=== PATIENT | male | born 2000 | race Hispanic/Latino ===

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

== ENCOUNTER 2018-05-27 10:45 | Observation (INO) | payer OTHER, SELFPAY ==
[2018-05-27] MEDS ORDERED: levETIRAcetam In NaCl (Iso-Os) 1,000 MG in Premix Bag 1 BAG IVPB ONE (11:15)
[2018-05-27] MEDS ORDERED: Ondansetron HCl/PF 4 MG/2 ML Vial ONE (11:16)
[2018-05-27 11:34] LABS: #Eosinphils 0.2 thou/uL (0.0-0.7); #Lymphocytes 1.9 thou/uL (1.20-3.40); #Monocytes 0.6 thou/uL (0.11-0.59); #Neutrophils 12.5 thou/uL (1.40-6.50); %Basophils 0.2 % (0.0-1.0); %Eosinophils 1.1 % (0.0-10.0); %Lymphocytes 12.8 % (28.0-48.0); Hemoglobin 16.5 g/dL (14.0-18.0); Mean Corpuscular Hemoglobin 33.4 pg (25.0-35.0); Mean Corpuscular Volume 92.5 fL (78.0-98.0); Platelet Count 226 thou/uL (130-400); RBC Distribution Width 11.7 % (11.5-14.5); Red Blood Cell (RBC) Count 4.95 mill/uL (4.00-5.20); White Blood Cell (WBC) Count 15.2 thou/uL (4.8-10.8)
[2018-05-27 11:59] LABS: ALT (SGPT) 32 U/L (8-55); AST (SGOT) 22 U/L (10-45); Albumin 5.1 g/dL (3.5-5.0); Alkaline Phosphatase 93 U/L (Less than 750); Anion Gap 13 mmol/L (10-20); BUN (Urea Nitrogen) 15 mg/dL (8.4-21.0); Bilirubin, Total 0.2 mg/dL (0.2-1.2); CK (CPK) 145 U/L (30-200); Calc. Creatinine Clearance 0 mL/min (70-130); Calcium 8.5 mg/dL (7.8-10.44); Carbon Dioxide 21 mmol/L (22-29); Chloride 109 mmol/L (98-107); Estimated GFR-MDRD Greater than 90; Globulin 3.1 g/dL (2.4-3.5); Glucose 147 mg/dL (70-105); Lipase 15 U/L (8-78); Protein, Total 8.2 g/dL (6.0-8.3); Sodium 139 mmol/L (136-145)
--- NOTE | 2018-05-27 12:55 | CT ---
CT OF THE BRAIN WITHOUT CONTRAST: Date: 05/27/18 COMPARISON: 10/31/17. HISTORY: Multiple seizures and vomiting. TECHNIQUE: Multiple contiguous axial images were obtained in a CT of the brain without contrast. FINDINGS: The brain is normal in morphology and attenuation without focal lesions or confluent areas of infarct ion. There is no evidence of hydrocephalus, intracranial hemorrhage, or extra-axial fluid collection. The calvarium and overlying soft tissues are unremarkable. The visualized paranasal sinuses and masto id air cells are well aerated. IMPRESSION: No evidence of acute intracranial abnormality. POS: [facility]
[2018-05-27] MEDS ORDERED: Lorazepam 2 MG/ML VIAL ONE (13:59)
[2018-05-27 15:42] LABS: Lactic Acid 5.6 mmol/L (0.5-2.2)
[2018-05-27] MEDS ORDERED: Bisacodyl 5 MG TAB PO PRN (15:59)
--- NOTE | 2018-05-27 16:22 | HP ---
CHIEF COMPLAINT: Seizure. PRIMARY CARE PROVIDER: Merlin Estrada M.D. HISTORY OF PRESENT ILLNESS: Mr. Scruggs is a pleasant 18-year-old gentleman who was seen at [facility] on 05/27/2018. He reports having a history of seizures for the last 2 years. He reports being compliant with his medications. Family reports that he has what they call minor seizures as well as what they call major seizures. Minor seizures are more frequent, last a couple of seconds and involve him curling his hands. Major seizures last about a minute to 2 minutes and are accompanied by tonic clonic activity. He reportedly has confusion following the seizures. He has not had a major seizure in a while. He has minor seizures several times a week. He had a tonic clonic seizure yesterday. He had 5 tonic clonic seizures today. He was therefore brought to the emergency room. Patient denies any chest pain or shortness of breath. In the emergency room, he had another seizure. He was referred to Hospitalist Service for admission. REVIEW OF SYSTEMS: All other systems reviewed and found to be negative. ALLERGIES: No known drug allergies. CURRENT MEDICATIONS: Levetiracetam 1250 mg 2 times a day and phenytoin 400 mg at bedtime. PAST MEDICAL HISTORY: Migraine headaches and seizures. PAST SURGICAL HISTORY: None. SOCIAL HISTORY: The patient reports marijuana use, denies alcohol use or tobacco use. FAMILY HISTORY: Significant for hypertension. PHYSICAL EXAMINATION: GENERAL: Mr. Scruggs is awake and alert, not in acute distress. VITAL SIGNS: Blood pressure is 136/69, pulse 102, respiratory rate 31, and oxygen saturation 100% on room air. He is afebrile. EYES: No scleral icterus. No conjunctival pallor. ENT: Moist mucosal membranes, no oropharyngeal erythema or exudates. NECK: Supple, nontender, trachea is midline. RESPIRATORY: Accessory muscles of breathing are not active. Chest wall movements are symmetric bilaterally. LUNGS: Clear to auscultation without wheeze, rhonchi or crepitations. CARDIOVASCULAR: S1 and S2 are heard, regular. Peripheral pulses palpable. No carotid bruit, no pericardial rub. ABDOMEN: Soft, nontender, bowel sounds are heard, no hepatomegaly, no splenomegaly. NEUROLOGIC: Cranial nerves II-XII intact. Deep tendon reflexes are 2+. MUSCULOSKELETAL: Power is 5/5 in all 4 extremities. SKIN: No rashes or subcutaneous nodules. LYMPHATIC: No cervical lymphadenopathy. PSYCHIATRIC: Normal mood, normal affect. The patient is oriented to person, place, and time. LABORATORY DATA: Mr. Scruggs' labs and investigations were reviewed. He had an electrocardiogram, which shows sinus bradycardia. He also had a noncontrast CT scan of the brain, which did not show any acute intracranial abnormality. He has leukocytosis with 15,200 white cells, of which 82% are neutrophils, normal hemoglobin, normal platelet count, normal sodium, normal potassium, decreased carbon dioxide of 21, elevated lactic acid of 5.6, unremarkable liver profile and normal prolactin level of 15.72. Phenytoin level is less than 1.8. ASSESSMENT AND PLAN: Mr. Scruggs is a pleasant 17-year-old gentleman who was seen at [facility] on 05/27/2018. His problem list includes: 1. Seizures: Mr. Scrugsg has breakthrough seizures. He reports compliance with his medications. His phenytoin level is undetectable. He has been loaded with phenytoin as well as Keppra and will continue phenytoin and Keppra. Neurology service will be consulted for opinion and help with management. 2. Leukocytosis: Etiology is unclear, likely secondary to seizure. Check chest x-ray. Pt does not have any urinary symptoms. 3. Lactic acidosis: Likely secondary to seizure. LEVEL OF RISK: Moderate. LEVEL OF COMPLEXITY: Moderate. MTDD
--- NOTE | 2018-05-27 16:23 | RAD ---
CHEST TWO VIEWS: History: Chest pain. Comparison: 02-06-12 FINDINGS: Cardiac silhouette and pulmonary vasculature are unremarkable. Mediastinum is midline. No confluent a irspace consolidation, pneumothorax, or pleural fluid. IMPRESSION: No active cardiopulmonary abnormalities are demonstrated. POS: [facility]
[2018-05-27] MEDS ORDERED: Acetaminophen 500 MG TAB ONE (16:27)
[2018-05-27] MEDS ORDERED: Ondansetron ODT 4 MG TAB SL PRN (17:24)
[2018-05-27] MEDS ORDERED: Lorazepam 2 MG/ML VIAL SLOW IVP PRN (17:24)
[2018-05-27] MEDS ORDERED: Acetaminophen 325 MG TAB PO PRN (17:24)
[2018-05-27] MEDS ORDERED: Ondansetron HCl/PF 4 MG/2 ML Vial IVP PRN (17:24)
[2018-05-27 19:22] VITALS: BMI 27.8
[2018-05-27] MEDS: levETIRAcetam 500 MG TAB PO SCH (20:43)
--- NOTE | 2018-05-27 23:42 | CON ---
DATE OF CONSULTATION: 05/27/2018 REFERRING PROVIDER: Dr. Naresh Ronquillo. REASON FOR CONSULTATION: Recurrent seizures. HISTORY OF PRESENT ILLNESS: Mr. Scruggs is a pleasant 17-year-old male, who has been consult ed for evaluation of recurrent seizures. The patient is known to me from his previous admission. He reports that he has been having episodes of seizures on a daily basis. He has "minor seizures" as w ell as "major seizures." He describes his minor seizures as having a passing out episode with shakin g of his arms, lasting less than 5 seconds followed by a complete resolution. He is also having sofie r seizures, in which he has whole-body convulsions, lasting for few minutes followed by postictal con fusion. He reports that yesterday he had one episode of a major seizure, and then this morning, he h ad 5 episodes of major seizures, which prompted his family to bring him to the [facility]. He is currently supposed to be on Dilantin 400 mg at bedtime and Keppra 1250 mg b.i.d., which h e says he has been taking it, although his Dilantin level was subtherapeutic at less than 1.8. PAST MEDICAL HISTORY: Significant for seizure disorder. PAST SURGICAL HISTORY: None significant. SOCIAL HISTORY: He reports of marijuana use. He denies alcohol, illicit drug use, or smoking use. FAMILY HISTORY: Significant for hypertension. CURRENT MEDICATIONS: Include Keppra 1250 mg twice daily and phenytoin 4 mg at bedtime. ALLERGIES: No known drug allergies. REVIEW OF SYSTEMS: As mentioned in the HPI, otherwise negative. PHYSICAL EXAMINATION: VITAL SIGNS: Blood pressure of 136/69, pulse of 102, respirations 31, O2 sats of 100% on room air. He is afebrile. GENERAL: A well-developed, well-nourished male, in no apparent distress. RESPIRATORY: Clear to auscultation bilaterally. CARDIOVASCULAR: Regular rate and rhythm. NEUROLOGICAL EXAM: Mental status: The patient is awake, alert, oriented x3. Speech and language: Fluent speech. Cranial nerves: Pupils are 3 mm and reactive. Visual swan are intact. External m uscles are intact. No nystagmus noted. Face is symmetric. Tongue and uvula midline. Motor exam sh owed normal tone and bulk with a 5/5 strength in both upper and lower extremities. Babinski: Planta r responses flexor bilaterally. Deep tendon reflexes 2+ reflexes in both upper and lower extremities . Sensory: Sensation is intact and symmetric. Gait and Romberg are not tested. LABORATORY DATA: Labs are reviewed, which included CBC, CMP, lactic acid, phenytoin level, which is significant for WBC of 15.2. Lactic acid of 5.6. Dilantin level of less than 1.8. IMAGING STUDIES: CT head without contrast was reviewed, which showed no acute intracranial abnormali ty. IMPRESSION: Recurrent seizures. ASSESSMENT AND PLAN: Mr. Scruggs is a pleasant 17-year-old male, who presents with recurrent seizures. 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 He is also most likely noncompliant with his medication, as his Dilantin level continues to be less hitesh n 1.8, even though the level has been increased in the past. At this time, I would recommend continu ing on Dilantin 400 mg at bedtime. I will increase Keppra to 1500 mg b.i.d. If he remains seizure f ree, he is okay to be discharged home tomorrow morning. If he continues to have episodes of seizures , then he may be benefited from having epilepsy monitoring unit where they can capture his spells. Collin kimble, there is no neurologist in [facility] that is currently performing an EMU and thus he may nee d to be referred to [facility] for further evaluation. Continue supportive care. Thank you for consultation.
[2018-05-28] MEDS: levETIRAcetam 500 MG TAB PO SCH (09:27)
[2018-05-28 12:20] VITALS: BP 137/80; TEMP 98.8
--- NOTE | 2018-05-28 13:02 | DIS ---
DATE OF ADMISSION: 05/27/2018 DATE OF DISCHARGE: 05/28/2018 PRIMARY CARE PHYSICIAN: Merlin Estrada M.D. DISCHARGE DIAGNOSIS: Seizure. CONDITION OF PATIENT ON THE DAY OF DISCHARGE: Stable. I assessed Mr. Scruggs on the day of discharge. He had no recurrence of seizures while in the hospita . He denies any chest pain or shortness of breath. He denies any fevers or chills. Vital signs ar e stable. S1 and S2 are heard, regular. Lungs are clear to auscultation bilaterally. CONSULTATIONS DURING THIS HOSPITALIZATION: Neurology, Dr. Myrna Harrison. HOSPITAL COURSE: Mr. Scruggs is a pleasant 17-year-old gentleman who was admitted to [facility] on 05/28/2018 for recurrent seizures. He was seen by Neurology Service. His Keppr a dose was increased to 1500 mg 2 times a day. He is advised to continue phenytoin 400 mg at bedtime . He did not have recurrence of seizures while in the hospital. He has been cleared by Neurology Servi ce for discharge. His Dilantin level was low during this hospitalization. Neurology Service feels that if he continues to have episodes of seizures, he may benefit from having epilepsy monitoring unit we can capture his spells. He may need to be referred to [facility] for further evaluation if he has recurrent sei zures. DISCHARGE MEDICATIONS: Phenytoin 400 mg at bedtime and Keppra 1500 mg 2 times a day. Many thanks for allowing me to participate in your patient's care. Please feel free to contact me wi th any questions or concerns. DISCHARGE DESTINATION: Home. TOTAL AMOUNT OF TIME SPENT COORDINATING THIS DISCHARGE: 33 minutes.
== END 2018-05-28 12:25 | disposition home or self-care (01) ==
LOC: ERS 10:45 → 2SE 14:34 → ERS 17:12
PROVIDERS: ADMIT Internal Medicine; ATTEND Internal Medicine
DX: G40.909 Epilepsy, unspecified, not intractable, without status epilepticus (principal); G43.909 Migraine, unspecified, not intractable, without status migrainosus; E87.2 Acidosis; D72.829 Elevated white blood cell count, unspecified; Z79.899 Other long term (current) drug therapy
CPT/HCPCS: 36415; 70450; 71046; 80053; 80185; 82550; 83605; 83690; 84146; 85025; 93005; 96361; 96365; 96367; 96375; G0378; J1953; J2060; J2405; J7050; Q2009

== ENCOUNTER 2018-10-11 20:26 | Emergency (ER) | payer OTHER, SELFPAY | END 2018-10-11 21:12 | disposition home or self-care (01) | LOC: ERS 20:26 | DX: L03.111 Cellulitis of right axilla (principal); L03.112 Cellulitis of left axilla; G43.909 Migraine, unspecified, not intractable, without status migrainosus; F17.210 Nicotine dependence, cigarettes, uncomplicated; Z79.899 Other long term (current) drug therapy | CPT/HCPCS: 99283 ==

== ENCOUNTER 2018-12-11 12:36 | Outpatient (CLI) | payer OTHER ==
--- NOTE | 2018-12-11 16:13 | MRI ---
MRI BRAIN WITH AND WITHOUT CONTRAST: 12/11/2018 HISTORY: A 18-year-old male with G40.206, complex partial seizures. TECHNIQUE: Multiple sequences obtained in axial, sagittal, and coronal planes; pre and post IV injection of gado linium-based contrast agent: MultiHance 15 mL. In addition to standard sequences, additional multiple thin slice coronal sequences were obtained. FINDINGS: The ventricles are normal in size and configuration. There is no major intraaxial signal abnormality , restricted diffusion, abnormal intraaxial enhancement, mass, midline shift or any other mass effect , recent intraaxial hemorrhage, or extraaxial fluid collection. The mesial temporal lobe structures, more specifically the hippocampi, are bilaterally symmetrical in size and signal. Incidentally, ther e is mucosal thickening with increased enhancement in the superior portion of the nasal cavity bilate rally. IMPRESSION: The brain is normal. jn[] POS: JACK
== END 2018-12-11 12:37 | disposition home or self-care (01) ==
LOC: SCSMRI 12:36
PROVIDERS: ATTEND Nurse Practitioner Acute Care
DX: G40.209 Localization-related (focal) (partial) symptomatic epilepsy and epileptic syndromes with complex partial seizures, not intractable, without status epilepticus (principal)
CPT/HCPCS: 70553

== ENCOUNTER 2018-12-19 10:33 | Observation (INO) | payer OTHER ==
[~2018-12-19 10:33] MED LIST: Iopamidol 370 76% 100 ML VIAL ONE
[2018-12-19 11:05] LABS: #Eosinphils 0.2 thou/uL (0.0-0.7); #Lymphocytes 2.3 thou/uL (1.20-3.40); #Monocytes 1.1 thou/uL (0.11-0.59); #Neutrophils 9.5 thou/uL (1.40-6.50); %Basophils 0.2 % (0.0-1.0); %Eosinophils 1.2 % (0.0-10.0); %Lymphocytes 17.3 % (28.0-48.0); %Monocytes 8.6 % (0.0-4.0); %Neutrophils 72.6 % (31.0-61.0); Hemoglobin 14.6 g/dL (14.0-18.0); Mean Corpuscular Hemoglobin 31.3 pg (25.0-35.0); Mean Corpuscular Volume 92.1 fL (78.0-98.0); Mean Platelet Volume 7.7 fL (7.4-10.4); Platelet Count 255 thou/uL (130-400); Red Blood Cell (RBC) Count 4.68 mill/uL (4.00-5.20); White Blood Cell (WBC) Count 13.1 thou/uL (4.8-10.8)
[2018-12-19] MEDS ORDERED: Famotidine/PF 20 mg/2ml Vial ONE (11:11)
[2018-12-19 11:28] LABS: ALT (SGPT) 34 U/L (8-55); AST (SGOT) 16 U/L (5-34); Albumin 4.5 g/dL (3.5-5.0); Alkaline Phosphatase 99 U/L (Less than 750); Anion Gap 10 mmol/L (10-20); BUN (Urea Nitrogen) 9 mg/dL (8.9-20.6); Bilirubin, Total 0.6 mg/dL (0.2-1.2); Calc. Creatinine Clearance 0 mL/min (70-130); Calcium 9.5 mg/dL (7.8-10.44); Carbon Dioxide 30 mmol/L (22-29); Chloride 102 mmol/L (98-107); Estimated GFR-MDRD Greater than 90; Glucose 107 mg/dL (70-105); Lipase 8 U/L (8-78); Potassium 3.6 mmol/L (3.5-5.1); Protein, Total 7.5 g/dL (6.0-8.3); Sodium 138 mmol/L (136-145)
[2018-12-19 11:47] LABS: Bilirubin Negative (Negative); Blood, Urine Trace (Negative); Glucose, Urine (Dipstick) Negative (Negative); Leukocyte Negative (Negative); Nitrite Negative (Negative); Protein, Urine (Dipstick) Negative (Neg-Trace); Specific Gravity, Urine 1.015 (1.005-1.030); Urobilinogen 0.2 mg/dL (0.2-1.0)
[2018-12-19 11:48] LABS: Clarity CLEAR (Clear)
[2018-12-19 11:52] LABS: RBC/HPF None Seen HPF (0-3); WBC/HPF None Seen HPF (0-3)
[2018-12-19 11:53] LABS: Bacteria/HPF None Seen HPF (None Seen); Hyaline Casts/LPF NONE SEEN LPF (0-3 Hyaline); Squamous Epithelial 0-3 HPF (0-3)
[2018-12-19] MEDS ORDERED: Mag-Al 1200 mg/1200 mg/30 ML UDCUP ONE (12:54)
[2018-12-19] MEDS ORDERED: Lidocaine Viscous Sol 2% 15 ml UD Cup ONE (12:54)
--- NOTE | 2018-12-19 12:59 | CT ---
CT ABDOMEN AND PELVIS WITH IV CONTRAST: Date: 12-19-18 Provided Clinical History: Abdominal pain. FINDINGS: Comparison is made with the study dated 07-22-14. The visualized lung bases are free of significant opacity. The liver, spleen, pancreas, kidneys and adrenal glands demonstrate an unremarkable CT appearance. Appendix appears mildly prominent in caliber and demonstrates mural thickening and no apparent event marketing intern al gas. There is minimal suspected periappendiceal fat stranding changes. There is no bowel dilatatio n, additional inflammatory fat stranding, free fluid or free air apparent. The osseous structures demonstrate no concerning osteoblastic or osteolytic lesions. IMPRESSION: Findings suspicious for early acute appendicitis. POS: TPC
[2018-12-19] MEDS ORDERED: Piperacillin/Tazobactam 4.5 GM VIAL ONE (14:04)
[2018-12-19] MEDS ORDERED: Morphine 4 MG/ML VIAL ONE (14:04)
[2018-12-19] MEDS ORDERED: Bupivacaine/Epinephrine 0.25% 30 ML VIAL ONE (14:41)
--- NOTE | 2018-12-19 14:42 | HP ---
HISTORY OF PRESENT ILLNESS: Mr. Scruggs is a 18-year-old young man with history of epileptic seizures. The patient was brought to the emergency department by his father and power of title attorney, reporting insidious onset periumbilical abdominal pain which started approximately 0400 hours. The pain is associated with multiple episodes of nausea and emesis. The pain is soon settled in the right lower quadrant, where it has persisted. The patient rates his pain at 7/10 after intravenous analgesics. He denies any fevers or chills. He denies any change in his bowel habits. PAST MEDICAL HISTORY: Significant for epileptic seizure disorder, of which the patient thought he might have seized this morning. PAST SURGICAL HISTORY: He denies any previous surgeries. SOCIAL HISTORY: He is unemployed. Lives at home with his father. He denies any cigarette smoking, ethanol, or illicit drug abuse. FAMILY HISTORY: Notable for paternal grandfather, who from complications of diabetes mellitus. His grandmother has essential hypertension and heart disease. His father has type 2 diabetes mellitus. There is no family history of cancer. PRE-HOSPITAL MEDICATIONS: Includes Keppra 500 mg p.o. b.i.d. ALLERGIES: THE PATIENT DENIES ANY KNOWN DRUG ALLERGIES. REVIEW OF SYSTEMS: Ten-point review of systems essentially unremarkable except as stated in past medical history and chief complaint. PHYSICAL EXAMINATION: GENERAL: This reveals a 18-year-old normally developed young man, who is otherwise coherent, interactive, and appears stated age. The patient is alert and oriented x3, appears to be in no acute distress at time of my evaluation. VITAL SIGNS: Blood pressure 119/78, pulse 86, respiratory rate is 18, temperature 98 degrees Fahrenheit, oxygen saturation 99% on room air. HEENT: Reveals normocephalic and atraumatic. Pupils are equal, round, reactive to light and accommodation. Extraocular muscles are intact bilaterally. No scleral icterus present. Oral mucosa is pink and moist. No lesions are noted. NECK: Supple. No palpable lymphadenopathy or thyromegaly present. HEART: Reveals regular rate and rhythm. No murmurs or gallops auscultated. LUNGS: Clear to auscultation bilaterally. Breathing, regular and nonlabored. ABDOMEN: Soft and nondistended. He has right lower quadrant tenderness at McBurney's. He has positive Rovsing sign. Liver and spleen otherwise nonpalpable below costal margin. EXTREMITIES: 2+ radial and pedal pulses bilaterally. No ankle edema is present. NEUROLOGICAL: Reveals no focal deficits present. LABORATORY DATA: Laboratory findings today includes CBC with 13,100 white blood cells, hemoglobin and hematocrit are 14.6 and 43.1 respectively. Platelet count is 255,000. Metabolic profile; sodium 138, potassium is 3.6, chloride is 102, bicarb is 30, BUN 9, creatinine 0.72, glucose 107, total bilirubin 0.6, AST and ALT are 16 and 34 respectively. Serum lipase is normal at 8. I have also personally reviewed the CT scan of the abdomen and pelvis, which is remarkable for dilated appendix with periappendiceal fat stranding. No pneumoperitoneum or free fluid is noted. IMPRESSIONS: 1. Acute appendicitis with localized peritonitis. 2. History of epileptic seizure disorder. PLAN: Laparoscopic appendectomy. Above findings and plan has been discussed with the patient and his father at bedside. I have informed the patient of the risks and benefits of the proposed surgery to include, but not limited to bleeding, infection, injury to bowel or surrounding structures. The patient indicates understanding of information I provided. Answered their questions. The patient and his father have both granted consent for this admission and surgical intervention. Job ID: [id number]
[2018-12-19] MEDS ORDERED: Fentanyl 100 MCG/2 ML VIAL ONE ×2 (14:55→16:59)
[2018-12-19] MEDS ORDERED: Rocuronium Bromide 10 MG/ML (10ML VIAL) ONE (15:12)
[2018-12-19] MEDS ORDERED: Glycopyrrolate 0.2 MG/ML 5 ML SYRINGE ONE (15:12)
[2018-12-19] MEDS ORDERED: PROPOFOL 200 MG/20 ML VIAL ONE (15:12)
[2018-12-19] MEDS ORDERED: Lidocaine 1% PF 5 ML VIAL ONE (15:12)
[2018-12-19] MEDS ORDERED: Ketorolac Tromethamine 30 MG/ML VIAL ONE (15:12)
[2018-12-19] MEDS ORDERED: Dextrose 5% in Water 1,000 ML IV PRN (16:17)
[2018-12-19] MEDS ORDERED: Ondansetron PF 4 MG/2 ML Vial IVP PRN (16:17)
[2018-12-19] MEDS ORDERED: Promethazine HCl 25 MG/ML VIAL IM PRN ×2 (16:17→16:23)
[2018-12-19] MEDS ORDERED: Dextrose 50% Abboject 50 ML SYRINGE SLOW IVP PRN (16:17)
[2018-12-19] MEDS ORDERED: Acetaminophen/Codeine 30-300mg Tablet PO PRN ×2 (16:20)
[2018-12-19] MEDS ORDERED: Morphine Sulfate 2 MG/ML SYRINGE SLOW IVP PRN (16:23)
[2018-12-19] MEDS ORDERED: Meperidine HCl/PF 25 MG/ML VIAL SLOW IVP PRN (16:23)
[2018-12-19] MEDS ORDERED: Promethazine HCl 25 MG/ML VIAL SLOW IVP PRN (16:23)
[2018-12-19] MEDS ORDERED: Ondansetron HCl/PF 4 MG/2 ML Vial IVP PRN (16:23)
--- NOTE | 2018-12-19 17:14 | OP ---
DATE OF PROCEDURE: 12/19/2018 PREOPERATIVE DIAGNOSIS: Acute appendicitis. POSTOPERATIVE DIAGNOSIS: Acute appendicitis. OPERATION PERFORMED: Laparoscopic appendectomy. ANESTHESIA: General endotracheal. ESTIMATED BLOOD LOSS: 5 mL. FLUIDS GIVEN: 500 mL crystalloids. COUNTS: Sponge and instrument counts were verified as correct x2. COMPLICATION: None apparent operation at the time of operation. INDICATIONS FOR OPERATION: This is a 18-year-old man presenting with abdominal pain. Clinical radiographic examination was consistent with acute appendicitis for which the patient was brought to operating room for appendectomy. Findings are consistent with suppurative, but nonperforated retrocecal appendix. DESCRIPTION OF PROCEDURE: Informed consent was obtained from the patient. He was brought to the operating room and placed in supine position. Following general anesthesia, abdomen was sterilely prepped and draped in usual fashion. The skin below the umbilicus was infiltrated 0.25% Marcaine with epinephrine. A small curvilinear infraumbilical incision was made using 11 scalpel. Umbilical stalk was grasped with Autumn and elevated. Veress needle was inserted through the incision and placed in the peritoneal cavity through which the abdomen was insufflated with 3 L of CO2 gas. Intraabdominal pressure noted at 1 mmHg. Following abdominal insufflation, Veress needle was removed and replaced with a 5 mm trocar, introduced using a Visiport under laparoscopy. Laparoscopy confirmed proper placement of the port. No injuries to underlying structures. Additional laparoscopy revealed right lower quadrant obscured by omental adhesions. Under direct laparoscopy, a 5 mm trocars were placed in the suprapubic and left lower quadrant areas after the overlying skin were infiltrated with 0.25% Marcaine with epinephrine. Appropriate incision was made. These were placed on the laparoscopy. The patient was then placed in a Trendelenburg position, rotated to his left. I introduced Prestige grasper through the left lower quadrant port site using this to bluntly take down omental adhesions to expose the terminal ileum. The terminal ileum ran from the ileocecal junction to proximal 2 feet. No Meckel diverticulum noted. A retrocecal dilated appendix was then identified, grasped with an Endo Sangeeta forceps, which was introduced through the suprapubic port site, which was then elevated. I used LigaSure device to sterilely take down the mesoappendix down to the base with good hemostasis. The appendix itself was divided at the appendiceal cecal junction between endo-loops. The appendix was delivered of the abdominal cavity using an EndoCatch. Operative site was inspected for good hemostasis. Finding no other pathology, laparoscopy was terminated. The abdomen was desufflated. All ports and instruments were removed and accounted for. Skin incisions were closed using 4-0 Monocryl suture in subcuticular fashion. Dermabond was applied over incisional closure. The patient tolerated the operation without any apparent complication and was returned to recovery room in satisfactory condition. Job ID: [id number]
[2018-12-19] MEDS: Acetaminophen 325 MG TAB PO SCH (18:51)
[2018-12-19] MEDS: Lactated Ringer's 1,000 ML IV SCH (18:55)
[2018-12-19] MEDS: Ketorolac Tromethamine 30 MG/ML VIAL IVP SCH (18:55)
[2018-12-19] MEDS: levETIRAcetam 500 MG TAB PO SCH (20:31)
[2018-12-19] MEDS: Famotidine 20 MG TAB PO SCH (20:31)
[2018-12-19] MEDS: Famotidine/PF 20 mg/2ml Vial SLOW IVP SCH (20:32)
[2018-12-19] MEDS: Piperacillin/Tazobactam 3.375 GM in Sodium Chloride 0.9% 100 ML IVPB SCH (21:13)
[2018-12-19 22:20] VITALS: BMI 25.7
[2018-12-20] MEDS: Ketorolac Tromethamine 30 MG/ML VIAL IVP SCH ×2 (00:01→06:19)
[2018-12-20] MEDS: Piperacillin/Tazobactam 3.375 GM in Sodium Chloride 0.9% 100 ML IVPB SCH ×2 (02:29→09:41)
[2018-12-20] MEDS: Lactated Ringer's 1,000 ML IV SCH (02:35)
[2018-12-20] MEDS: Acetaminophen 325 MG TAB PO SCH ×2 (06:18)
[2018-12-20] MEDS ORDERED: Ibuprofen 600 MG TAB PO PRN (07:38)
[2018-12-20] MEDS: Famotidine 20 MG TAB PO SCH (08:15)
[2018-12-20] MEDS: levETIRAcetam 500 MG TAB PO SCH (08:15)
[2018-12-20] MEDS: Famotidine/PF 20 mg/2ml Vial SLOW IVP SCH (08:16)
[2018-12-20 08:22] VITALS: BP 128/71; TEMP 97.6
--- NOTE | 2018-12-20 10:45 | DIS ---
DATE OF ADMISSION: 12/19/2018 DATE OF DISCHARGE: 12/20/2018 ADMITTING DIAGNOSIS: Acute appendicitis. DISCHARGE DIAGNOSIS: Acute appendicitis. OPERATIONS AND PROCEDURES: Laparoscopic appendectomy on 12/19/[address] Freeman. Please see separate dictation for operative report. HISTORY AND HOSPITAL COURSE: A 18-year-old man was admitted yesterday following a diagnosis of acute abdominal pain secondary to acute appendicitis. The patient underwent an uneventful laparoscopic appendectomy following which he was admitted to general floor until time of discharge. His hospitalization has been essentially uneventful. Postop day #1, he is ambulating with minimal difficulty. His pain is adequately controlled on oral analgesics. He is having normal bowel and urinary function. He has remained hemodynamically stable and afebrile. He has had no seizure activities. Clinical examination reveals young man in no acute distress. PHYSICAL EXAMINATION: VITAL SIGNS: This morning includes blood pressure 101/59, pulse 70, respiratory rate 16, temperature 97.5 degrees Fahrenheit, oxygen saturation 98% on room air. ABDOMEN: Abdominal incisions are intact, clean and dry. He has no peritoneal signs on examination. DISCHARGE INSTRUCTIONS: The patient will be discharged home today with the following instructions. 1. He is to avoid weight lifting in excess of 20 pounds until he has been released by me. He follows up with me in the Surgery Clinic in 10 days. 2. He is to take Tylenol 650 mg p.o. q.6 hours or ibuprofen 600 mg p.o. q.6 hours p.r.n. pain. Additionally, he was given a prescription for Tylenol No. 3 to be taken one p.o. q.6 hours p.r.n. breakthrough pain. 3. He was given 20 tablets, no refill. 4. He is to resume all pre-hospital medications as prescribed by his primary care physician including Keppra and Dilantin. 5. With regard to his history of epileptic seizure disorder, he is to follow up with his primary care physician. 6. The patient is to call me with any questions or problems including exacerbation of abdominal pain, fever in excess of 101 degrees Fahrenheit, intolerance to oral intake or any abnormal drainage from the incisional wounds. This information was given to the patient, who indicates understanding of information given. 7. I have answered his questions. Job ID: [id number]
== END 2018-12-20 11:52 | disposition home or self-care (01) ==
LOC: ERS 10:33 → SDC 14:35 → ONC 17:41 → INTOOBSV 17:41
PROVIDERS: ADMIT Surgery; ATTEND Surgery
PROC: 0DTJ4ZZ Resection of Appendix, Percutaneous Endoscopic Approach (ICD-10-PCS; principal; 2018-12-19)
DX: K35.80 Unspecified acute appendicitis (principal); G40.909 Epilepsy, unspecified, not intractable, without status epilepticus; Z79.899 Other long term (current) drug therapy
CPT/HCPCS: 36415; 74177; 80053; 80185; 81003; 81015; 83690; 85025; 88304; 96361; 96365; 96366; 96374; 96375; 96376; G0378; J1885; J2001; J2270; J2543; J2704; J3010; J7050; Q9967; S0028

== ENCOUNTER 2018-12-25 15:14 | Emergency (ER) | payer OTHER ==
[2018-12-25 16:09] LABS: #Eosinphils 0.4 thou/uL (0.0-0.7); #Lymphocytes 2.1 thou/uL (1.20-3.40); #Monocytes 0.7 thou/uL (0.11-0.59); #Neutrophils 7.3 thou/uL (1.40-6.50); %Eosinophils 4.1 % (0.0-10.0); %Lymphocytes 20.2 % (28.0-48.0); %Monocytes 6.4 % (0.0-4.0); %Neutrophils 69.3 % (31.0-61.0); Hemoglobin 15.4 g/dL (14.0-18.0); Mean Corpuscular HGB CONC 33.9 g/dL (32.0-36.0); Mean Corpuscular Hemoglobin 31.1 pg (25.0-35.0); Mean Corpuscular Volume 91.8 fL (78.0-98.0); Platelet Count 246 thou/uL (130-400); RBC Distribution Width 12.1 % (11.5-14.5); Red Blood Cell (RBC) Count 4.93 mill/uL (4.00-5.20); White Blood Cell (WBC) Count 10.5 thou/uL (4.8-10.8)
[2018-12-25 16:26] LABS: Bilirubin Negative (Negative); Blood, Urine Small (Negative); Clarity CLEAR (Clear); Glucose, Urine (Dipstick) Negative (Negative); Leukocyte Negative (Negative); Nitrite Negative (Negative); Protein, Urine (Dipstick) Trace mg/dL (Neg-Trace); Specific Gravity, Urine 1.036 (1.002-1.036); Urobilinogen 0.2 mg/dL (0.2-1.0); pH, Urine 5.5 (5.0-9.0)
[2018-12-25 16:28] LABS: Bacteria/HPF None Seen HPF (None Seen); Pathc Cast-AUWi Flag 2.31 (0-2.49); RBC/HPF 0-3 HPF (0-3); Squamous Epithelial 0-3 HPF (0-3)
[2018-12-25 16:34] LABS: Hyaline Casts/LPF 0-3 HYALINE CAST LPF (0-3 Hyaline)
[2018-12-25 16:36] LABS: ALT (SGPT) 81 U/L (8-55); AST (SGOT) 36 U/L (5-34); Acetaminophen Less than 6.0 mcg/mL (10.0-30.0); Albumin 4.8 g/dL (3.5-5.0); Alcohol Less than 10 mg/dL (Less than 10); Alkaline Phosphatase 113 U/L (Less than 750); Anion Gap 11 mmol/L (10-20); BUN (Urea Nitrogen) 13 mg/dL (8.9-20.6); Bilirubin, Total 0.3 mg/dL (0.2-1.2); Calc. Creatinine Clearance 0 mL/min (70-130); Calcium 9.9 mg/dL (7.8-10.44); Carbon Dioxide 29 mmol/L (22-29); Chloride 102 mmol/L (98-107); Estimated GFR-MDRD Greater than 90; Globulin 3.5 g/dL (2.4-3.5); Glucose 91 mg/dL (70-105); Potassium 3.8 mmol/L (3.5-5.1); Protein, Total 8.3 g/dL (6.0-8.3); Salicylate Less than 8.0 mg/dL (15.0-30.0); Sodium 138 mmol/L (136-145)
[2018-12-25 16:37] LABS: Amphetamine Not Detected (NotDetected); Barbiturates Screen Detected (NotDetected); Benzodiazepine Screen Not Detected (NotDetected); Cocaine Metabolite Screen Not Detected (NotDetected); Medtox Control Line Valid? VALID (VALID); Medtox Reader # READER 1; Methadone Not Detected (NotDetected); Methamphetamine Not Detected (NotDetected); Opiate Screen Detected (NotDetected); Oxycodone Screen Not Detected (NotDetected); Phencyclidine (PCP) Not Detected (NotDetected); THC/Cannabinoid Screen Detected (NotDetected); Tricyclic Screen Not Detected (NotDetected)
--- NOTE | 2018-12-25 20:02 | CT ---
CT OF THE BRAIN WITHOUT CONTRAST: 12/25/18 INDICATION: History of altered mental status with possible reaction to Dilantin. COMPARISON: Prior exam dated 06/26/18. FINDINGS: No acute infarct, hemorrhage, or hydrocephalus is present. Septum pellucidum and third ventricle are midline. Skull and extracranial soft tissues are unremarkable appearing. IMPRESSION: No acute intracranial abnormality. POS: BH
== END 2018-12-25 21:15 | disposition home or self-care (01) ==
LOC: ERS 15:14
DX: G40.909 Epilepsy, unspecified, not intractable, without status epilepticus (principal); G43.909 Migraine, unspecified, not intractable, without status migrainosus; F41.9 Anxiety disorder, unspecified; F31.9 Bipolar disorder, unspecified; F20.9 Schizophrenia, unspecified; Z79.899 Other long term (current) drug therapy
CPT/HCPCS: 36415; 70450; 80053; 80177; 80185; 80306; 80307; 81003; 81015; 84443; 85025

== ENCOUNTER 2019-04-06 14:12 | Emergency (ER) | payer OTHER ==
[~2019-04-06 14:12] MED LIST changes: +ISOVUE-370 76%-LOCM 1 ML ONE; -Iopamidol 370 76% 100 ML VIAL ONE
[2019-04-06 14:45] LABS: #Eosinphils 0.1 thou/uL (0.0-0.7); #Lymphocytes 3.2 thou/uL (1.20-3.40); #Monocytes 1.3 thou/uL (0.11-0.59); #Neutrophils 10.1 thou/uL (1.40-6.50); %Basophils 0.1 % (0.0-1.0); %Eosinophils 0.9 % (0.0-10.0); %Lymphocytes 21.6 % (28.0-48.0); %Monocytes 8.7 % (0.0-4.0); %Neutrophils 68.7 % (31.0-61.0); Mean Corpuscular Hemoglobin 31.8 pg (25.0-35.0); Mean Corpuscular Volume 91.1 fL (78.0-98.0); Mean Platelet Volume 7.7 fL (7.4-10.4); Platelet Count 234 thou/uL (130-400); RBC Distribution Width 12.1 % (11.5-14.5); White Blood Cell (WBC) Count 14.7 thou/uL (4.8-10.8)
[2019-04-06 15:05] LABS: ALT (SGPT) 21 U/L (8-55); AST (SGOT) 12 U/L (5-34); Albumin 4.6 g/dL (3.5-5.0); Alkaline Phosphatase 72 U/L (Less than 750); Anion Gap 12 mmol/L (10-20); BUN (Urea Nitrogen) 10 mg/dL (8.9-20.6); Bilirubin, Total 0.9 mg/dL (0.2-1.2); Calc. Creatinine Clearance 0 mL/min (70-130); Calcium 9.1 mg/dL (7.8-10.44); Carbon Dioxide 28 mmol/L (22-29); Chloride 102 mmol/L (98-107); Estimated GFR-MDRD Greater than 90; Globulin 3.1 g/dL (2.4-3.5); Glucose 84 mg/dL (70-105); Potassium 3.6 mmol/L (3.5-5.1); Protein, Total 7.7 g/dL (6.0-8.3); Sodium 138 mmol/L (136-145)
[2019-04-06 15:39] LABS: Bilirubin Negative (Negative); Blood, Urine Negative (Negative); Clarity CLEAR (Clear); Glucose, Urine (Dipstick) Negative (Negative); Leukocyte Negative (Negative); Nitrite Negative (Negative); Protein, Urine (Dipstick) Negative (Neg-Trace); Urobilinogen 0.2 mg/dL (0.2-1.0)
--- NOTE | 2019-04-06 17:29 | CT ---
EXAM: CT ABDOMEN AND PELVIS HISTORY: Right-sided abdominal pain, starting last night. Previous appendectomy. COMPARISON: 12/19/2018 Procedure: Multiple contiguous axial images were obtained and a CT of the abdomen and pelvis with IV contrast. C oronal reformats were performed. FINDINGS: Lower Chest: Minimal atelectatic changes in the lung bases Vessels: Normal caliber aorta. Heart: Normal size. No pericardial fluid. Abdomen: Portal vein:Patent Gallbladder: No calcified gallstones. Normal caliber wall. Liver: within normal limits. Pancreas: within normal limits. Spleen: within normal limits. Adrenals: within normal limits. Kidneys: Symmetric enhancement. No obstructive uropathy. Peritoneum: No ascites or free air, no fluid collection. Bowel: Limited evaluation due to lack of oral contrast. No evidence of small bowel obstruction. Ileoc ecal junction is normal. Unremarkable colon. Occasional diverticulum. No diverticulitis. Mesentery and Retroperitoneum: When compared to the previous examination, there are few scattered sli ghtly enlarged mesenteric lymph nodes. Associate Product Manager enlarged lymph node is noted in the right lower quadrant measuring 0.8 x 0.6 cm. Correlate for mesenteric lymphadenitis. Abdominal Wall: within normal limits. Pelvis: Reproductive Organs: Unremarkable prostate gland Pelvis: within normal limits. Bladder: within normal limits. Bones: within normal limits. IMPRESSION: 1. Enlarged mesenteric lymph nodes. Correlate for mesenteric lymphadenitis. 2. No evidence of abscess within the abdomen or pelvis. 3. No evidence of bowel obstruction.
[2019-04-06] MEDS ORDERED: Ondansetron PF 4 MG/2 ML Vial ONE (17:38)
[2019-04-06] MEDS ORDERED: Dicyclomine 20 MG TAB ONE (17:38)
== END 2019-04-06 18:38 | disposition home or self-care (01) ==
LOC: ERS 14:12
DX: I88.0 Nonspecific mesenteric lymphadenitis (principal); D72.829 Elevated white blood cell count, unspecified; G43.909 Migraine, unspecified, not intractable, without status migrainosus; F41.9 Anxiety disorder, unspecified; F31.9 Bipolar disorder, unspecified; F20.9 Schizophrenia, unspecified
CPT/HCPCS: 74177; 80053; 81003; 85025; 96361; 96374; J2405; Q9966

== ENCOUNTER 2019-08-12 10:10 | Emergency (ER) | payer OTHER | END 2019-08-12 11:48 | disposition home or self-care (01) | LOC: ERS 10:10 | DX: H61.22 Impacted cerumen, left ear (principal); G43.909 Migraine, unspecified, not intractable, without status migrainosus; F41.9 Anxiety disorder, unspecified; F31.9 Bipolar disorder, unspecified; F20.9 Schizophrenia, unspecified | CPT/HCPCS: 99281 ==

== ENCOUNTER 2019-11-16 16:44 | Emergency (ER) | payer OTHER, MEDICAID | END 2019-11-16 17:09 | disposition home or self-care (01) | LOC: ERS 16:44 | DX: Z76.0 Encounter for issue of repeat prescription (principal); R56.9 Unspecified convulsions; G43.909 Migraine, unspecified, not intractable, without status migrainosus; F41.9 Anxiety disorder, unspecified; F31.9 Bipolar disorder, unspecified; F20.9 Schizophrenia, unspecified | CPT/HCPCS: 99281 ==

== ENCOUNTER 2020-12-06 13:05 | Emergency (ER) | payer OTHER, MEDICAID ==
[2020-12-06] MEDS ORDERED: Iopamidol-370 76% 500 ML 1 ML ONE (13:35)
[2020-12-06 13:53] LABS: #Basophils 0.1 thou/uL (0.0-0.2); #Eosinphils 0.1 thou/uL (0.0-0.7); #Lymphocytes 2.1 thou/uL (1.20-3.40); #Neutrophils 9.7 thou/uL (1.40-6.50); %Basophils 0.4 % (0.0-1.0); %Eosinophils 0.6 % (0.0-10.0); %Lymphocytes 16.6 % (21.0-51.0); %Monocytes 7.4 % (0.0-10.0); Hemoglobin 15.5 g/dL (14.0-18.0); Mean Corpuscular HGB CONC 34.5 g/dL (32.0-36.0); Mean Corpuscular Hemoglobin 32.1 pg (27.0-31.0); Mean Corpuscular Volume 93.2 fL (78.0-98.0); Mean Platelet Volume 8.6 fL (7.4-10.4); Platelet Count 224 thou/uL (130-400); RBC Distribution Width 11.7 % (11.5-14.5); Red Blood Cell (RBC) Count 4.84 mill/uL (4.70-6.10); White Blood Cell (WBC) Count 12.9 thou/uL (4.8-10.8)
[2020-12-06] MEDS ORDERED: Ondansetron PF 4 MG/2 ML Vial ONE (14:03)
[2020-12-06] MEDS ORDERED: Morphine 4 MG/ML VIAL ONE (14:03)
[2020-12-06 14:12] LABS: Bilirubin Negative (Negative); Blood, Urine 2+ (Negative); Clarity Clear (Clear); Glucose, Urine (Dipstick) Normal (Negative); Ketone, Urine Negative (Negative); Leukocyte Negative Leu/uL (Negative); Nitrite Negative (Negative); Protein, Urine (Dipstick) 30 mg/dL (Neg-Trace); Specific Gravity, Urine 1.032 (1.002-1.036); Squamous Epithelial 0-3 HPF (0-3); Urobilinogen Normal mg/dL (Less than 2)
[2020-12-06 14:13] LABS: ALT (SGPT) 14 U/L (8-55); AST (SGOT) 11 U/L (5-34); Albumin 4.8 g/dL (3.5-5.0); Alkaline Phosphatase 76 U/L (40-110); Anion Gap 13 mmol/L (10-20); BUN (Urea Nitrogen) 11 mg/dL (8.9-20.6); Bilirubin, Total 0.5 mg/dL (0.2-1.2); Calc. Creatinine Clearance 0 mL/min (70-130); Calcium 9.3 mg/dL (7.8-10.44); Carbon Dioxide 28 mmol/L (22-29); Chloride 102 mmol/L (98-107); Globulin 3.4 g/dL (2.4-3.5); Glucose 77 mg/dL (70-105); Lipase 16 U/L (8-78); Potassium 3.7 mmol/L (3.5-5.1); Protein, Total 8.2 g/dL (6.0-8.3); Sodium 139 mmol/L (136-145)
[2020-12-06 14:15] LABS: Bacteria/HPF 1+ HPF (None Seen)
--- NOTE | 2020-12-06 14:35 | CT ---
CT ABDOMEN AND PELVIS WITH IV CONTRAST 12/06/2020 CLINICAL INFORMATION: Abdominal pain/pressure for 2 days with tenderness to touch. Pain worse when laying down. COMPARISON: 04/06/2019 Technique: Multiple contiguous axial CT images are obtained through the abdomen and pelvis with IV contrast. Cor onal reformatted images are provided. FINDINGS: Lower Chest: Lung bases are clear. Vessels: Abdominal aorta is normal in caliber. Abdomen: Portal vein:Patent Gallbladder: Within normal limits for CT imaging. Liver: within normal limits. Spleen: within normal limits. Pancreas: within normal limits. Adrenals: within normal limits. Kidneys: within normal limits. Bowel: Normal caliber. Appendix: Not visualized, but no secondary signs to suggest appendicitis are visualized. Peritoneum: No ascites or free air; no fluid collection. Mesentery and Retroperitoneum: No enlarged mesenteric or retroperitoneal lymph nodes. Abdominal Wall: within normal limits. Pelvis: Reproductive Organs: No pelvic masses. Bladder: Decompressed but otherwise grossly within normal limits. Bones: No suspicious lytic or sclerotic osseous lesions. IMPRESSION: No acute findings in the abdomen or pelvis.
[2020-12-06] MEDS ORDERED: cefTRIAXone\\ROCEPHIN 1 GM VIAL ONE (16:04)
[2020-12-06 22:18] LABS: SARS-CoV-2 PCR by NAA Not Detected (NotDetected)
[2020-12-08 21:53] LABS: Chlam.trachomatis by PCR,Urine Not Detected (NotDetected)
== END 2020-12-06 16:20 | disposition home or self-care (01) ==
LOC: ERS 13:05
DX: N39.0 Urinary tract infection, site not specified (principal); R10.84 Generalized abdominal pain; Z20.822 Contact with and (suspected) exposure to COVID-19; G43.909 Migraine, unspecified, not intractable, without status migrainosus; Z79.899 Other long term (current) drug therapy
CPT/HCPCS: 74177; 80053; 81003; 81015; 83690; 85025; 87491; 87591; 87635; 96365; 96375; J0696; J2270; J2405; Q9967; U0003; U0005

== ENCOUNTER 2022-06-11 14:32 | Emergency (ER) | payer BC ==
[2022-06-11 15:30] LABS: Bacteria/HPF None Seen HPF (None Seen); Bilirubin Negative (Negative); Blood, Urine 1+ (Negative); Clarity Clear (Clear); Glucose, Urine (Dipstick) Normal (Negative); Ketone, Urine Negative (Negative); Leukocyte Negative Leu/uL (Negative); Nitrite Negative (Negative); Protein, Urine (Dipstick) 30 mg/dL (Neg-Trace); Specific Gravity, Urine 1.036 (1.002-1.036); Squamous Epithelial None Seen HPF (0-3); WBC/HPF 0-3 HPF (0-3); pH, Urine 6.5 (5.0-9.0)
== END 2022-06-11 16:50 | disposition home or self-care (01) ==
LOC: ERS 14:32
DX: R31.9 Hematuria, unspecified (principal); N35.811 Other urethral stricture, male, meatal
CPT/HCPCS: 81003; 81015; 99283

== ENCOUNTER 2022-09-21 17:48 | Emergency (ER) | payer BC, MEDICAID, OTHER ==
[2022-09-21 18:15] LABS: #Basophils 0.1 thou/uL (0.0-0.2); #Eosinphils 0.2 thou/uL (0.0-0.7); #Lymphocytes 2.4 thou/uL (1.20-3.40); #Monocytes 1.1 thou/uL (0.11-0.59); #Neutrophils 12.4 thou/uL (1.40-6.50); %Basophils 0.4 % (0.0-1.0); %Eosinophils 1.2 % (0.0-10.0); %Lymphocytes 14.8 % (21.0-51.0); %Monocytes 6.7 % (0.0-10.0); %Neutrophils 76.8 % (42.0-75.0); Hemoglobin 15.1 g/dL (14.0-18.0); Mean Corpuscular HGB CONC 31.8 g/dL (32.0-36.0); Mean Corpuscular Hemoglobin 30.5 pg (27.0-31.0); Mean Corpuscular Volume 95.7 fl (78.0-98.0); Mean Platelet Volume 9.2 fL (7.4-10.4); Platelet Count 178 10x3/uL (130-400); RBC Distribution Width 11.7 % (11.5-14.5); Red Blood Cell (RBC) Count 4.96 mill/uL (4.70-6.10); White Blood Cell (WBC) Count 16.1 10x3/uL (4.8-10.8)
[2022-09-21 18:39] LABS: ALT (SGPT) 12 U/L (8-55); AST (SGOT) 11 U/L (5-34); Albumin 4.6 g/dL (3.5-5.0); Alkaline Phosphatase 73 U/L (40-110); Anion Gap 13 mmol/L (10-20); BUN (Urea Nitrogen) 10 mg/dL (8.9-20.6); Bilirubin, Total 0.6 mg/dL (0.2-1.2); Calc. Creatinine Clearance 0 mL/min (70-130); Calcium 9.3 mg/dL (7.8-10.44); Carbon Dioxide 25 mmol/L (22-29); Chloride 103 mmol/L (98-107); Estimated GFR 129; Glucose 97 mg/dL (70-105); Lipase 13 U/L (8-78); Potassium 3.8 mmol/L (3.5-5.1); Protein, Total 7.6 g/dL (6.0-8.3); Sodium 137 mmol/L (136-145)
[2022-09-21 20:53] LABS: Bacteria/HPF None Seen HPF (None Seen); Bilirubin Negative (Negative); Blood, Urine 1+ (Negative); Clarity Clear (Clear); Glucose, Urine (Dipstick) Normal (Negative); Ketone, Urine 60 mg/dL (Negative); Leukocyte Negative Leu/uL (Negative); Nitrite Negative (Negative); Protein, Urine (Dipstick) Negative (Neg-Trace); Specific Gravity, Urine 1.023 (1.002-1.036); Squamous Epithelial 0-3 HPF (0-3); WBC/HPF 0-3 HPF (0-3)
[2022-09-21 20:58] LABS: Amphetamine Not Detected (NotDetected); Barbiturates Screen Not Detected (NotDetected); Benzodiazepine Screen Not Detected (NotDetected); Cocaine Metabolite Screen Not Detected (NotDetected); Methadone Not Detected (NotDetected); Methamphetamine Not Detected (NotDetected); Opiate Screen Not Detected (NotDetected); Oxycodone Screen Not Detected (NotDetected); Phencyclidine (PCP) Not Detected (NotDetected); THC/Cannabinoid Screen Detected (NotDetected); Tricyclic Screen Not Detected (NotDetected)
[2022-09-21] MEDS ORDERED: Ondansetron PF 4 MG/2 ML Vial ONE (22:03)
== END 2022-09-21 23:58 | disposition left against medical advice (07) ==
LOC: ERS 17:48
DX: R10.811 Right upper quadrant abdominal tenderness (principal)
CPT/HCPCS: 36415; 80053; 80306; 81003; 81015; 83690; 85025; 96361; 96374; J2405

== ENCOUNTER 2024-05-08 12:50 | Emergency (ER) | payer OTHER | END 2024-05-08 15:35 | disposition home or self-care (01) | LOC: ERS 12:50 | DX: K04.7 Periapical abscess without sinus (principal); F17.290 Nicotine dependence, other tobacco product, uncomplicated | CPT/HCPCS: 99282 ==